=== PATIENT | male | born 1980 | race Caucasian/White ===

== ENCOUNTER 2018-08-04 13:58 | Emergency (ER) | payer OTHER, SELFPAY ==
[2018-08-04 13:59] VITALS: BP 135/74; PULSE 79; RESP 16; TEMP 36.2; O2SAT 98
--- NOTE | 2018-08-04 15:13 | ED.DCSUM_ITS ---
History of Present Illness Chief Complaint: Back Informant: Patient Onset: Days - 2 Context: Sudden Onset - slipped in bathroom on wet floor, catching himself w/ foot vs. wall, twisting/torquing his low back w/ sudden onset of pain Injury: Fall Timing: Continuous Quality: Aching Location: Lumbar Current Severity: Moderate Maximum Severity: Moderate Worsened by: improves with: Nothing Relieved by: Nothing - no comfortable position Associated Symptoms: - - no radiation into LEs. no bowel or bladder dysfunction. no weakness/numbness. Prior similar symptoms: With Prior Back Pain - remotely Past Medical History - Allergies and Home Meds Allergies/Adverse Reactions: Allergies No Known Allergies Allergy (Verified 08/04/18 13:58) Past Medical History: None Lives: With Family Smoking Status: Former smoker Review of Systems All systems negative except as indicated Gastrointestinal: Denies: Abdominal pain Genitourinary: Reports: - - no bowel or bladder dysfunction Musculoskeletal: Reports: Back pain. Denies: Extremity Pain Neurological: Denies: Weakness, Parasthesia, Numbness Physical Exam Vital Signs/Narrative: Vital Signs Temp Pulse Resp BP Pulse Ox 08/04/18 13:59 97.2 F L 79 16 135/74 H 98 Inital Vital Signs reviewed: Yes General: Well nourished, Well developed, - - NAD Head: Normocephalic, Atraumatic Back: Normal Inspection, Nontender. Negative for: Spinal tenderness, Paraspinal Tenderness Extremeties: Nontender, No edema, - - very slight length discrepancy between BLE Skin: Normal color, No rash Neuro: Alert, Oriented, Normal Strength, Normal Sensation, Normal DTR, Normal Gait Reflexes: - - nml DTRs. negative BLE straight leg raises while sitting Psychological: Normal affect Diagnostic/Tx/Re-eval - Medical Decision Making Radiography indicated. NSAIDs indicated along with time, follow-up, I also suggested possibly following up with chiropractic or physical therapy for this. He tried an oxycodone yesterday that was left over from his but did not help. We mutually agreed that prescribing him medicines other than anti- inflammatories would probably be useless and potentially harmful. ED Disposition - Plan for ED Patient: Disposition: Home or Assisted Living Chief Complaint: Back Diagnosis: Acute lumbosacral myofascial strain, Sacroiliac joint dysfunction of left side Instructions: ED Sprain Strain Lumbar, ED Sacroiliitis Prescriptions: Naproxen [Naprosyn] 500 mg PO BID PRN #20 tab Referrals: Doctor,Your [STAFF PHYSICIAN] - 1 Week if not improving
[2018-08-04] MEDS: Naproxen 500 MG Tablet PO (15:21)
[2018-08-04 15:23] VITALS: RESP 16
--- NOTE | 2018-08-04 15:23 | ED.RN ---
REVIEWED D/C INSTRUCTIONS, FOLLOW UP CARE, PRESCRIPTION, AND S/S THAT WOULD WARRANT A RETURN TO THE ED WITH PT. PT VERBALIZED AN UNDERSTANDING AND DENIES FURTHER QUESTIONS FOR THIS RN. PT SKIN P/W/D, RESP EVEN AND UNLABORED, PT A&O X 3, NO DISTRESS NOTED. PT AMBULATED OUT OF ED, GAIT STEADY.
--- OUTSIDE RECORDS SUMMARY | 2018-09-20 21:42 | XMS RPT_ITS ---
:1980 Author Organization [facility] Care Team Providers Name Role Phone MICKY BECK Attending Unavailable Primay Care Physicia, No Primary Care Unavailable PROBLEMS PROBLEMS No Problem Records FoundPROCEDURES PROCEDURES No Procedure Records FoundRESULTS RESULTS EMERGENCY DEPARTMENT Observed: 08/04/2018 Status: F Source: [place] SUMMARY 3:[address] [facility] REPOSITORY [facility] Medical Records Department [address] [place] [address] Emergency Department Summary 08/04/18 1509 MR#: [id number] Acct: [id number] Name: MARLENE TROTTER Rep #: [id number] : 1980 37 From: Micky Beck MD PCP: Care Physician, No Primary Status: REG ER History of Present Illness Chief Complaint: Back Informant: Patient Onset: Days - 2 Context: Sudden Onset - slipped in bathroom on wet floor, catching himself w/ foot vs. wall, twisting/torquing his low back w/ sudden onset of pain Injury: Fall Timing: Continuous Quality: Aching Location: Lumbar Current Severity: Moderate Maximum Severity: Moderate Worsened by: improves with: Nothing Relieved by: Nothing - no comfortable position Associated Symptoms: - - no radiation into LEs. no bowel or bladder dysfunction. no weakness/numbness. Prior similar symptoms: With Prior Back Pain - remotely Past Medical History - Allergies and Home Meds Allergies/Adverse Reactions: Allergies No Known Allergies Allergy (Verified 08/04/18 13:58) Past Medical History: None Lives: With Family Smoking Status: Former smoker Review of Systems All systems negative except as indicated Gastrointestinal: Denies: Abdominal pain Genitourinary: Reports: - - no bowel or bladder dysfunction Musculoskeletal: Reports: Back pain. Denies: Extremity Pain Neurological: Denies: Weakness, Parasthesia, Numbness Physical Exam Vital Signs/Narrative: Vital Signs 08/04/18 13:59 97.2 F L 79 16 135/74 H 98 Inital Vital Signs reviewed: Yes General: Well nourished, Well developed, - - NAD Head: Normocephalic, Atraumatic Back: Normal Inspection, Nontender. Negative for: Spinal tenderness, Paraspinal Tenderness Extremeties: Nontender, No edema, - - very slight length discrepancy between BLE Skin: Normal color, No rash Neuro: Alert, Oriented, Normal Strength, Normal Sensation, Normal DTR, Normal Gait Reflexes: - - nml DTRs. negative BLE straight leg raises while sitting Psychological: Normal affect Diagnostic/Tx/Re-eval - Medical Decision Making Radiography indicated. NSAIDs indicated along with time, follow-up, I also suggested possibly following up with chiropractic or physical therapy for this. He tried an oxycodone yesterday that was left over from his but did not help. We mutually agreed that prescribing him medicines other than anti-inflammatories would probably be useless and potentially harmful. ED Disposition - Plan for ED Patient: Disposition: Home or Assisted Living Chief Complaint: Back Diagnosis: Acute lumbosacral myofascial strain, Sacroiliac joint dysfunction of left side Instructions: ED Sprain Strain Lumbar, ED Sacroiliitis Prescriptions: Naproxen [Naprosyn] 500 mg PO BID PRN #20 tab Referrals: Doctor,Your [STAFF PHYSICIAN] - 1 Week if not improving What to do if you have Problems For any increased pain, shortness of breath, bleeding, nausea or vomiting, chest pain, or any unexpected problems, contact your Primary Care Provider. Call [facility] ([phone]) or report to the closest Emergency Room. Call 911 if necessary. 08/04/18 0455 <Electronically signed by Micky Beck MD> Date Micky Beck MD Cosigner Signature (If Indicated): Date CC: No Primary Care Physician ALLERGIES ALLERGIES DATE TYPE / CODE NAME / CODE REACTION SEVERITY SOURCE 08/04/2018 Drug No Known Unknown [facility] Allergy/4160 Allergies/F00 [facility] [address](SNOMED [id number](RXNOR Repository CT) M) ENCOUNTERS ENCOUNTERS ADMIT/DISCHARGE ACCOUNT ADMITTING ENCOUNTER LOCATION SOURCE NUMBER CLASS 08/04/2018/ [id number] Emergency [address] ing:ED Repository PAYERS PAYERS ENCOUNTER GUARANTOR PAYER SUBSCRIBER SOURCE 08/04/2018 MARLENE Soliman Primary Insurance:P MARLENE Faye [id number] [facility]: [id number] [id number] [address]Def: Date: [place], [place] ([place]) [address]WP: 08/04/2018 [facility] Date:2018-08-04 Repository
== END 2018-08-04 15:24 | disposition home or self-care (01) ==
LOC: ED 15:15
PROVIDERS: Emergency Provider Emergency Medicine
DX: S39.012A Strain of muscle, fascia and tendon of lower back, initial encounter (principal); Z87.891 Personal history of nicotine dependence; W01.0XXA Fall on same level from slipping, tripping and stumbling without subsequent striking against object, initial encounter; Y93.89 Activity, other specified; Y92.002 Bathroom of unspecified non-institutional (private) residence as the place of occurrence of the external cause; Y99.8 Other external cause status
CPT/HCPCS: 99283